=== PATIENT | female | born 1995 | race Caucasian/White ===

== ENCOUNTER 2022-06-20 10:52 | Outpatient (CLI) | payer BC, SELFPAY ==
[2022-06-20 17:17] LABS: Chloride* 102 mmol/L (96-114)
[2022-06-20 17:18] LABS: Potassium* 4.4 mmol/L (3.6-5.1); Sodium* 136 mmol/L (135-149)
[2022-06-20 17:20] LABS: Carbon Dioxide* 24 mmol/L (20-32); Cholesterol* 155 mg/dL (90-199); Creatinine* 0.6 mg/dL (0.5-1.5); Estimated Glomerular Filt Rate 126 ml/min
[2022-06-20 17:21] LABS: Blood Urea Nitrogen* 12 mg/dL (5-24); Calcium* 9.4 mg/dL (8.4-10.6); Glucose* 82 mg/dL (60-115); HDL Cholesterol* 69 mg/dL (>=50); LDL Cholesterol Calculated 66 mg/dL (<100); Triglycerides* 100 mg/dL (40-149)
== END 2022-06-20 10:53 | disposition home or self-care (01) ==
PROVIDERS: PCP Nurse Practitioner Family; Visit Provider Nurse Practitioner Family
DX: Z00.00 Encounter for general adult medical examination without abnormal findings (principal); Z13.6 Encounter for screening for cardiovascular disorders; Z13.29 Encounter for screening for other suspected endocrine disorder
CPT/HCPCS: 80048; 80061; 84443

== ENCOUNTER 2022-12-03 12:52 | Outpatient (CLI) | payer BC, SELFPAY ==
--- NOTE | 2022-12-03 13:00 | CRLHL7_ITS ---
For Patients: As a result of the Century Cures Act, medical imaging exams and procedure reports are released immediately into your electronic medical record. You may view this report before your referring provider. If you have questions, please contact your health care provider. INDICATION: First trimester scan, establish dates. COMPARISON: None. TECHNIQUE: Real-time espino-scale imaging of the pelvis was performed. FINDINGS: Sonographic imaging demonstrates a single living intrauterine gestation. The embryo demonstrates a regular cardiac rate measuring 171 beats per minute. The embryo`s crown-rump length measurement of 2.0 cm corresponds to a gestational age of 8 weeks 4 days with a sonographic due date of July 11, 2023. There is a normal-appearing yolk sac measuring 3.6 mm. There are no gross abnormalities noted within the embryo at this early state of development. The placenta has not yet developed. The gestational sac has a normal appearance. Minimal subchorionic hemorrhage inferior to the gestational sac measuring 4 x 9 x 3 mm. The amount of fluid within the sac appears appropriate for gestational age. The cervix is closed. The myometrium appears normal. The ovaries are of normal size. The right ovary measures 3.0 x 1.7 x 1.9 cm. The left ovary measures 3.8 x 2.4 x 2.9 cm. Corpus luteum cyst of on the left. There are no suspicious fluid collections noted in the cul-de-sac. IMPRESSION: Normal first trimester OB ultrasound exam. Gestational age calculated at 8 weeks 4 days with a sonographic due date of July 11, 2023. Dictated by Pavan Turner MD @ 12/03/2022 2:01:00 PM (Electronically Signed)
== END 2022-12-03 12:53 | disposition home or self-care (01) ==
LOC: US 12:52
PROVIDERS: PCP Nurse Practitioner Family; Visit Provider Registered Nurse
DX: Z34.91 Encounter for supervision of normal pregnancy, unspecified, first trimester (principal); Z3A.08 8 weeks gestation of pregnancy
CPT/HCPCS: 76817; 86592; 86703; 86762; 86787; 86803; 86850; 86900; 86901; 87086; 87340; 87491; 87591

== ENCOUNTER 2023-02-18 13:53 | Outpatient (CLI) | payer BC, SELFPAY ==
--- NOTE | 2023-02-18 14:00 | CRLHL7_ITS ---
For Patients: As a result of the Century Cures Act, medical imaging exams and procedure reports are released immediately into your electronic medical record. You may view this report before your referring provider. If you have questions, please contact your health care provider. INDICATION: Evaluate anatomy. COMPARISON: 12/03/2022 TECHNIQUE: Real time espino scale imaging of the fetus was performed as well as color Doppler analysis of the umbilical vessels. FINDINGS: Sonographic imaging demonstrates a single living intrauterine gestation. Fetus demonstrates a regular cardiac rate of 145 beats per minute. Fetus has a variable position. The placenta lies posterior without evidence of placenta previa. The edge of the placenta is located 3.4 cm from the internal cervical os. Amniotic fluid volume appears normal. Single deepest vertical pocket: 3.6 cm. The cervix is closed and measures 3.9 cm in length. The composite ultrasound gestational age is calculated at 19 weeks 2 days with an estimated sonographic due date of 07/13/2023. The estimated weight is 299 grams which lies at the 36th %. The following biometric measurements were obtained: Biparietal diameter: 4.2 cm/18 weeks 5 days 14th% Head circumference: 16.3 cm/19 weeks 0 days 15th% Abdominal circumference: 13.9 cm/19 weeks 2 days 31st% Femur length: 3.2 cm/20 weeks 0 days 54th% The HC/AC ratio measures: 1.17 range (1.09-1.26) On anatomic survey, there is a normal appearance of the cerebral ventricles, cavum septi pellucidi, cisterna magna and cerebellum. The nose, lips, and facial profile appear normal. The cervical, thoracic and lumbar spine are well visualized and appear normal. There is a normal four-chamber heart view and the left and right ventricular outflow tracts appear normal. The diaphragm and stomach appear normal. The kidneys and bladder also appear normal. There is a normal three-vessel cord and there is an eccentric cord insertion site. The four extremities appear normal. IMPRESSION: Normal OB ultrasound exam with concordance of clinical and sonographic dating. No intrinsic abnormalities noted on anatomic survey. Dictated by Servando Pyle MD @ 02/20/2023 6:46:00 AM (Electronically Signed)
== END 2023-02-18 13:54 | disposition home or self-care (01) ==
LOC: US 13:54
PROVIDERS: PCP Nurse Practitioner Family; Visit Provider Physician Assistant
DX: Z34.92 Encounter for supervision of normal pregnancy, unspecified, second trimester (principal); Z3A.19 19 weeks gestation of pregnancy
CPT/HCPCS: 76805

== ENCOUNTER 2023-04-21 09:28 | Outpatient (CLI) | payer BC, SELFPAY | END 2023-04-21 09:29 | disposition home or self-care (01) | LOC: NFLDREF 04-23 06:27 | PROVIDERS: PCP Nurse Practitioner Family; Referring Provider Nurse Practitioner Family; Visit Provider Obstetrics & Gynecology | DX: Z34.93 Encounter for supervision of normal pregnancy, unspecified, third trimester (principal); Z3A.29 29 weeks gestation of pregnancy | CPT/HCPCS: 86592 ==

== ENCOUNTER 2023-06-12 11:14 | Outpatient (CLI) | payer BC, SELFPAY ==
[2023-06-13 09:39] LABS: Strep B DNA Probe NEGATIVE (Negative)
[2023-06-13 09:41] LABS: Strep B Pen/Amox Allergy No
== END 2023-06-12 11:15 | disposition home or self-care (01) ==
LOC: NFLDREF 11:15
PROVIDERS: PCP Nurse Practitioner Family; Visit Provider Physician Assistant
DX: Z34.93 Encounter for supervision of normal pregnancy, unspecified, third trimester (principal); Z3A.36 36 weeks gestation of pregnancy
CPT/HCPCS: 87081; 87653

== ENCOUNTER 2023-06-18 11:07 | Outpatient (CLI) | payer BC, SELFPAY ==
--- NOTE | 2023-06-18 11:30 | CRLHL7_ITS ---
For Patients: As a result of the Century Cures Act, medical imaging exams and procedure reports are released immediately into your electronic medical record. You may view this report before your referring provider. If you have questions, please contact your health care provider. INDICATION: Size less than dates COMPARISON: 02/18/2023 TECHNIQUE: Real time espino scale imaging of the fetus was performed. FINDINGS: Sonographic imaging demonstrates a single living intrauterine gestation. Fetus demonstrates a regular cardiac rate of 134 beats per minute. Fetus has a vertex position. The placenta lies right fundal. Amniotic fluid volume appears normal and there is a single deepest vertical pocket: 4.9 cm. The estimated weight is 2933gm which lies at the 43rd %. On the prior OB ultrasound exam dated 02/18/2023 the estimated weight was at the 36th%. BPD 18th percentile. HC 14th percentile. AC 76th percentile. FL 10th percentile. The HC/AC ratio measures 0.96 range (0.93-1.08). IMPRESSION: Sonographic gestational age 36 weeks 0 days and the sonographic due date 07/16/2023. Sonographic age 6 days behind the clinical age. Estimated weight 43rd percentile. Abdominal circumference 76th percentile. Dictated by Servando Pyle MD @ 06/18/2023 12:33:19 PM (Electronically Signed)
== END 2023-06-18 11:08 | disposition home or self-care (01) ==
LOC: US 11:08
PROVIDERS: PCP Nurse Practitioner Family; Visit Provider Obstetrics & Gynecology
DX: O36.5930 Maternal care for other known or suspected poor fetal growth, third trimester, not applicable or unspecified (principal); Z3A.36 36 weeks gestation of pregnancy
CPT/HCPCS: 76816

== ENCOUNTER 2023-07-10 06:58 | Inpatient (IN) | payer BC, SELFPAY ==
[2023-07-10] VITALS (31 sets, daily range): BP systolic 84–119; BP diastolic 44–71; PULSE 58–114; RESP 16–17; TEMP 36.6–36.9; O2SAT 97–100; BMI 27.3
--- NOTE | 2023-07-10 07:54 | W.PM.LDBA ---
Subjective History of Present Illness Time Seen by Provider: 07:54 Date Seen: 07/10/23 Narrative: Patient is being admitted to Labor and Delivery for elective IOL. She is a 27 year old at 40 0/7 weeks gestation. Her full history and physical was dictated by Dr. LOVE on 06/18/23. Please see this for details. Specific Issues/Plans 001 : Remi. Daughter: Maryjane Foster MaterniT 21- girl! Adenike (Live - ee) 1. Prolonged recovery after second degree vaginal laceration (no perineal laceration) and left labial laceration with first baby. Flu vaccine 12/03/22 COVID: Completed, not boosted. Recommended Tdap:05/05/23 OB - Problem Based A/P Additional Plan (1) Elective induction of labor planned: Status: Acute Plan 1. IOL to start with IV Oxytocin and AROM when able. 2. GBS negative no antibiotic prophylaxis indicated. 3. Pain management as per patient request. 4. Expect a vaginal delivery. OB Exam Physical Exam Vital signs: Pulse BP Pulse Ox 97 114/67 97 07/10/23 07:17 07/10/23 07:17 07/10/23 07:17 Detailed Labor and Delivery Exam Patient Gravid: Yes Dilation (cm): 4 Effacement (%): 80 Cervix position: mid Consistency: soft Contraction Frequency: Sporadic Tachysystole: No Contraction intensity: Mild Fetus (Single) Station: -1 Amniotic Membrane Status: intact Heart Rate Baseline: 135 Monitor Accelerations: Present Monitor Decelerations: Variable Correction Variability: Moderate (6-25)
[2023-07-10] MEDS: LACTATED RINGERS 1000 ML 1,000 ML 125 ML IV (08:33)
[2023-07-10] MEDS: OXYTOCIN 30 unit/500 ML in NS 30 UNIT/500 ML BAG IVPB (08:35)
[2023-07-10] MEDS: ROPIVACAINE 0.2% 100 ml 100 ML 12 MG EPIDURAL (11:52)
[2023-07-10] MEDS: PHENYLEPHRINE 100 MCG/ML SYRINGE IVP (11:56)
[2023-07-10] MEDS: LACTATED RINGERS 1000 ML 1,000 ML 999 ML IV (11:57)
--- NOTE | 2023-07-10 13:08 | P.ANBPRC_ITS ---
[facility] Medical History Normal spontaneous vaginal delivery ?O80 - Encounter for full-term uncomplicated delivery (ICD-10) History of fracture of clavicle ?Z87.81 - Personal history of (healed) traumatic fracture (ICD-10) Social History What is your current living situation?: I presently have a place to live Problems where you live: no known problems In the past 12 months, utilities in danger of being shut off: no In the past 12 mos, have been you worried that your food would run out before you had money to buy more?: never true In the past 12 mos, the food you bought just didn't last and you didn't have money to buy more?: never true Smoking Status: Never smoker How often does anyone, including family, friends and others, physically hurt you : never How often does anyone, including family, friends and others, insult or talk down to you: never How often does anyone, including family, friends and others, threaten you with harm: never How often does anyone, including family, friends and others, scream or curse at you: never Little interest or pleasure in doing things: not at all Feeling down, depressed, or hopeless: not at all Meds Home Medications and Allergies Home Medications Medication Instructions Recorded Confirmed Type prenat.vits,whit,zav-uzwx-vbuov 1 tab PO QDAY 12/03/22 07/10/23 History Allergies Allergy/AdvReac Type Severity Reaction Status Date / Time Penicillins Allergy Mild Rash Verified 07/10/23 07:49 Results Vital Signs Vital Signs: Last Vital Signs Temp 97.8 F 07/10/23 11:15 Pulse 76 07/10/23 12:57 Resp 17 07/10/23 11:15 BP 110/60 07/10/23 12:57 Pulse Ox 99 07/10/23 11:49 Weight: 69.853 kg Height: 160.02 cm Anesthesia Procedures Epidural Insertion Patient Location: OB Start Time: 11:30 Stop Time: 12:15 Start Date: 07/10/23 Stop Date: 07/10/23 Reason for Block: procedure for pain Patient Position: sitting Performed By: Jodee Patel Preanesthetic Checklist: IV checked, risks and benefits discussed, monitors and equipment checked, timeout performed and anesthesia consent Prep: chlorhexidine gluconate Monitoring: blood pressure monitoring, continuous pulse oximetry and heart rate Approach: midline Vertebral Space: lumbar (1-5) Epidural Technique: KATRIN saline Needle Type: Tuohy needle Injection Technique: continuous catheter Needle gauge: 17 Needle Length (cm): 10 cm Needle Insertion Depth (cm): 4 Catheter Gauge: 19 Catheter Type: multi-orifice Catheter at skin depth (cm): 8 Test Dose Result: negative and lidocaine 1.5% with epinephrine 1 to 200,000
--- NOTE | 2023-07-10 13:17 | W.PM.OBVAGDE ---
OB Procedure Vag Delivery Mother Details Mother Details: The patient is a 27 year-old, 2, Para 1, admitted on 07/10/23 at 40 0/7 Days gestation. Additional Details Amniotic Membrane Status: intact Heart: heart tones during second stage were [] Delivery Details Delivery Details: Delivered over [intact perineum] via [spontaneous] vaginal delivery. Infant was placed on maternal abdomen.? Cord was clamped and cut after a 30-60 second delay. Nose and mouth were bulb suctioned.? Infant weight pending. Event Summary Status: Mother and infant were stable after delivery.
[2023-07-10] MEDS: IBUPROFEN 600 MG TABLET PO (20:18)
[2023-07-11 00:06] VITALS: BP 110/65; PULSE 75; RESP 16; TEMP 36.9; O2SAT 97
[2023-07-11 03:58] VITALS: BP 118/71; RESP 16; TEMP 36.7; O2SAT 99
[2023-07-11] MEDS: IBUPROFEN 600 MG TABLET PO ×2 (04:57→10:31)
[2023-07-11 07:00] LABS: Hemoglobin* 11.3 gm/dL (12.0-16.0)
[2023-07-11 08:00] VITALS: BP 110/72; PULSE 62; RESP 16; TEMP 36.6
--- NOTE | 2023-07-11 08:07 | P.DS_ITS ---
DS: Providers Provider Time Seen by Provider: 08:08 Date Seen: 07/11/23 Date of admission: 07/10/23 06:58 Primary care physician: Sherley Leon CNP Admitting Clinician: Suzan Baxter MD Attending Physician on discharge: Suzan Baxter MD Date of Discharge: 07/11/23 DS: Diagnosis Discharge Diagnosis (1) NVD (normal vaginal delivery): Status: Acute (2) Lactating mother: Status: Acute Exam Narrative: Exam Narrative: VSS, afebrile GENERAL APPEARANCE: ?normal affect, alert, no distress MOOD: ?appropriate HEENT: normocephalic, neck supple, full ROM CHEST: ?Symmetrical chest wall movement. ?Normal respiratory effort. ?Clear to auscultation HEART: ?regular rate and rhythm ABDOMEN: ?soft, non-tender. Uterine fundus is firm, at Umbilicus, Midline and is appropriate for the stage of recovery. ?Bowel sounds present. PERINEUM: ?mild edema of the perineum, there is a smalllaceration that is healing well. EXTREMITIES: ?normal and no edema Const: Vital Signs, click to edit/add: Vital Signs - 24 hr 07/10/23 08:37 07/10/23 10:03 07/10/23 11:15 Temperature 98.5 F 97.8 F Pulse Rate 66 Pulse Rate [Pulse Oximeter] Respiratory Rate 16 17 Blood Pressure 108/63 Blood Pressure [Le ft Radial Artery] Pulse Oximetry Oxygen Delivery Tn thod 07/10/23 11:34 07/10/23 11:35 07/10/23 11:39 Temperature Pulse Rate 65 Pulse Rate [Pulse Oximeter] Respiratory Rate Blood Pressure 108/65 Blood Pressure [Le ft Radial Artery] Pulse Oximetry 99 100 Oxygen Delivery Tn thod 07/10/23 11:44 07/10/23 11:46 07/10/23 11:48 Temperature Pulse Rate 58 L 64 104 H Pulse Rate [Pulse Oximeter] Respiratory Rate Blood Pressure 91/49 L 84/44 L 90/53 L Blood Pressure [Le ft Radial Artery] Pulse Oximetry 100 Oxygen Delivery Tn thod 07/10/23 11:49 07/10/23 11:50 07/10/23 11:52 Temperature Pulse Rate 75 65 Pulse Rate [Pulse Oximeter] Respiratory Rate Blood Pressure 108/61 102/59 L Blood Pressure [Le ft Radial Artery] [facility]ulse [facility]ximetry [facility] 11[facility]54 07/10/23 11:56 07/10/23 11:58 Temperature Pulse Rate 64 70 69 Pulse Rate [Pulse Oximeter] Respiratory Rate Blood Pressure 104/59 L 100/59 L 100/57 L Blood Pressure [Le ft Radial Artery] Pulse [facility]ximetry [facility] 12:04 07/10/23 12:09 07/10/23 12:15 Temperature Pulse Rate 75 70 70 Pulse Rate [Pulse Oximeter] Respiratory Rate Blood Pressure 100/52 L 105/56 L 105/55 L Blood Pressure [Le ft Radial Artery] Pulse [facility]ximetry [facility] 12:20 07/10/23 12:57 07/10/23 13:13 Temperature Pulse Rate 75 76 72 Pulse Rate [Pulse Oximeter] Respiratory Rate Blood Pressure 106/67 110/60 112/58 L Blood Pressure [Le ft Radial Artery] Pulse Oximetry [facility] 13:26 07/10/23 13:41 07/10/23 13:56 Temperature Pulse Rate 63 69 65 Pulse Rate [Pulse Oximeter] Respiratory Rate Blood Pressure 119/68 119/71 112/64 Blood Pressure [Le ft Radial Artery] Pulse Oximetry [facility] 14:12 07/10/23 14:26 07/10/23 14:41 Temperature Pulse Rate 81 64 69 Pulse Rate [Pulse Oximeter] Respiratory Rate Blood Pressure 110/63 111/67 116/68 Blood Pressure [Le ft Radial Artery] Pulse Oximetry [facility] 14:56 07/10/23 15:45 07/10/23 20:03 Temperature 98.0 F 98.2 F Pulse Rate 80 Pulse Rate [Pulse Oximeter] 61 77 Respiratory Rate 16 16 Blood Pressure 111/67 Blood Pressure [Le ft Radial Artery] 109/68 115/66 Pulse Oximetry 98 98 Oxygen Delivery [facility] Room Air Room Air 07/11/23 00:06 07/11/23 03:58 07/11/23 08:00 Temperature 98.5 F 98.1 F 97.8 F Pulse Rate Pulse Rate [Pulse Oximeter] 75 62 Respiratory Rate 16 16 16 Blood Pressure Blood Pressure [Le ft Radial Artery] 110/65 118/71 110/72 Pulse Oximetry 97 99 Oxygen Delivery Me thod Room Air Room Air Room Air Documenting provider has reviewed patient's vital signs: yes OB - DS: Summary Hospital Course Hospital Course: Precious is a 27 y.o. G 2 P 2 who was admitted to L & D for IOL. ?She had an uncomplicated NVD The patient feels well. ?The pain is well controlled with current medications. ?She has no new complaints. ?She is breast feeding and reports things are going well.? the patient has done well.? Vitals have been stable.? She has remained afebrile.? Has a good appetite, is tolerating a general diet. ?She is voiding without difficulty.? She is passing gas and has had a bowel movement.? She is ambulating and denies any dizziness.? Has Small amount of rubra lochia. She is undecided about prevention. Problems: none plan: Discharge home with baby. Follow up in 2 weeks and 6 weeks. , may follow up with if needed Gender: Female Discharge Plan: Home Status at Discharge Functional status at discharge: independent ambulation Overall status at discharge: patient is progressing back to baseline Time Spent with Patient Time attestation: Total time spent providing and/or coordinating discharge services: Time spent: Less than 30 minutes Discharge Plan Discharge Disposition: Home, Self-Care Date of Admission: 07/10/23 06:58 Attending Provider on Discharge: Cayla Gamez Primary Care Provider: Sherley Leon Condition: Stable Anticipated Discharge Date/Time: 07/11/23 15:00 Discharge Medications: New docusate sodium 100 mg Capsule 100 mg PO BID PRNQty: 100 0RF Rx Instructions: Take 1 cap 1-2 times a day as needed for constipation ibuprofen 600 mg Tablet 600 mg PO Q6H PRNQty: 60 0RF Continued prenat.vits,whit,[id number] Tablet 1 tab PO QDAY Discharge Orders: Discharge Order (Routine); Ordered 07/11/23 Ordered By: Cayla Gamez Patient Education: OB Over the Counter Medication Information, OB Vaginal/Breast Feeding Activity Level: Activity as Tolerated Activity Detail: Follow up in 2 weeks and 6 weeks Discharge Diet: Regular Follow Up Appointments: Sherley Leon, OPERATIONS VICE PRESIDENT [Primary Care Provider] - Forms: MyHealth Info Instructions
[2023-07-11] MEDS: DOCUSATE SODIUM 100 MG CAPSULE PO (10:31)
--- NOTE | 2023-07-11 12:53 | W.PM.OBVAGDE ---
OB Procedure Vag Delivery Mother Details Mother Details: The patient is a 27 year-old, 2, Para 2, admitted on 07/10/23 at 40.0 Days gestation for elective IOL. : 2 Para: 2 Weeks Gestation: 40 Admission Date: 07/10/23 Additional Details Amniotic Membrane Status: AROM Amniotic Membrane Rupture Date: 07/10/23 Amniotic Membrane Rupture Time: 11:00 Amniotic Membrane Fluid Description: Clear Analgesia/Anesthesia Type: Epidural Waterbirth: No Pitcoin: Yes Intrapartal Events: Labor Induction Induction Method: per pitocin protocol and AROM Labor Onset: 11:00 Complete: 12:23 Pushin:40 Heart: heart tones during second stage were category 2, deceleration noted after pushing, acceleration noted with scalp stimulation. Delivery Details Delivery Date: 07/10/23 Delivery Time: 12:51 Route of delivery: Infant Gender: Female Infant Viability: Alive; Heart Rate Present Position at Delivery: OA Delivery Details: Delivered over intact perineum via spontaneous vaginal delivery. Infant was placed on maternal abdomen.? Cord was clamped and cut after a 30-60 second delay. Nose and mouth were bulb suctioned.? Infant weight pending. 1 Minute Interval Total Score: 8 5 Minute Interval Total Score: 9 Additional Details Shoulder Dystocia: No Placenta Delivery Time: 12:55 Placental Delivery Description: Spontaneous Delivery repair: Vicryl Procedure Done: Global Blood Loss: 100 Laceration: Vaginal - 1st Degree Episiotomy Description: None Blood Loss Measurement Type: QBL Bakri Used: No Sponge/Need Count Correct: Yes Cord Vessel Description: 3 Vessels Event Summary Status: Mother and infant were stable after delivery. Disposition: floor
[2023-07-11 13:35] VITALS: BP 112/71; PULSE 62; RESP 16; TEMP 36.6
== END 2023-07-11 14:15 | disposition home or self-care (01) | DRG 560 ==
PROVIDERS: Admitting Provider Obstetrics & Gynecology; PCP Nurse Practitioner Family; Visit Provider Obstetrics & Gynecology
DX: O70.0 First degree perineal laceration during delivery (principal); Z3A.40 40 weeks gestation of pregnancy; Z37.0 Single live birth
CPT/HCPCS: 01967; 36415; 85018; A9270; J2371; J2795; J7120; S0020

== ENCOUNTER 2024-01-08 13:00 | Outpatient (RCR) | payer BC, SELFPAY | END 2024-03-31 10:20 | disposition home or self-care (01) | PROVIDERS: PCP Nurse Practitioner Family; Visit Provider Advanced Practice Midwife | DX: N81.89 Other female genital prolapse (principal); Z51.89 Encounter for other specified aftercare | CPT/HCPCS: 97110; 97112; 97140; 97161; 97535 ==

== ENCOUNTER 2024-02-04 15:50 | Outpatient (CLI) | payer BC, SELFPAY ==
[2024-02-04 23:23] LABS: Chlamydia DNA Amplified* NOT DETECTED (No Detected); GC DNA Amplified* NOT DETECTED (No Detected)
== END 2024-02-04 15:51 | disposition home or self-care (01) ==
LOC: NFLDREF 15:51
PROVIDERS: PCP Nurse Practitioner Family; Visit Provider Registered Nurse
DX: Z01.419 Encounter for gynecological examination (general) (routine) without abnormal findings (principal); Z11.3 Encounter for screening for infections with a predominantly sexual mode of transmission
CPT/HCPCS: 87491; 87591

== ENCOUNTER 2024-04-14 09:10 | Outpatient (CLI) | payer BC, SELFPAY ==
--- NOTE | 2024-04-14 09:15 | CRLHL7_ITS ---
For Patients: As a result of the Century Cures Act, medical imaging exams and procedure reports are released immediately into your electronic medical record. You may view this report before your referring provider. If you have questions, please contact your health care provider. CLINICAL HISTORY: Excessive and frequent menstruation, pelvic pain TECHNIQUE: 2D espino scale ultrasound. In addition color Doppler and spectral Doppler analysis was performed of the pelvis using a transabdominal and transvaginal approach. FINDINGS: The myometrium has a normal uniform echotexture. The uterus measures 7.7 x 4.9 x 5.9 cm. The endometrial lining measures 13 mm in thickness. The right ovary measures 3.6 x 1.7 x 2.1 cm in size and the left ovary measures 3.5 x 2.3 x 2.5 cm. The ovaries demonstrate normal arterial and venous blood flow on color Doppler and spectral Doppler analysis. Mild physiologic free fluid noted. IMPRESSION: No uterine fibroid. No excess pelvic free fluid or adnexal mass. No torsion. Dictated by Servando Pyle MD @ 04/15/2024 10:35:43 AM (Electronically Signed)
== END 2024-04-14 09:11 | disposition home or self-care (01) ==
LOC: US 09:10
PROVIDERS: PCP Nurse Practitioner Family; Visit Provider Registered Nurse
DX: N92.1 Excessive and frequent menstruation with irregular cycle (principal); R10.2 Pelvic and perineal pain
CPT/HCPCS: 76830; 76856; 93976

== ENCOUNTER 2024-06-01 17:46 | Outpatient (CLI) | payer BC, SELFPAY ==
[2024-06-01 21:01] LABS: Chlamydia DNA Amplified* NOT DETECTED (No Detected); GC DNA Amplified* NOT DETECTED (No Detected)
== END 2024-06-01 17:47 | disposition home or self-care (01) ==
PROVIDERS: PCP Nurse Practitioner Family; Visit Provider Registered Nurse
DX: Z34.91 Encounter for supervision of normal pregnancy, unspecified, first trimester (principal); Z3A.08 8 weeks gestation of pregnancy
CPT/HCPCS: 76817; 86592; 86703; 86704; 86706; 86762; 86787; 86803; 86850; 86900; 86901; 87086; 87340; 87491; 87591

== ENCOUNTER 2024-08-19 12:52 | Outpatient (CLI) | payer BC, SELFPAY ==
--- NOTE | 2024-08-19 13:00 | CRLHL7_ITS ---
For Patients: As a result of the Century Cures Act, medical imaging exams and procedure reports are released immediately into your electronic medical record. You may view this report before your referring provider. If you have questions, please contact your health care provider. INDICATION: Evaluate anatomy. COMPARISON: [id number] TECHNIQUE: Real time espino scale imaging of the fetus was performed as well as color Doppler analysis of the umbilical vessels. FINDINGS: Sonographic imaging demonstrates a single living intrauterine gestation. Fetus demonstrates a regular cardiac rate of 142 beats per minute. Fetus has a variable position. The placenta lies anteriorly without evidence of placenta previa. Edge of the placenta located 12 cm from the internal cervical os. Amniotic fluid volume appears normal. Single deepest vertical pocket: 3.3 cm. The cervix is closed and measures 3.8 cm in length. The composite ultrasound gestational age is calculated at 21 weeks 0 days with an estimated sonographic due date of 12/30/2024. The estimated weight is 393 grams which lies at the 89th %. The following biometric measurements were obtained: Biparietal diameter: 4.5 cm/19 weeks 3 days 22nd% Head circumference: 18.4 cm/20 weeks 5 days 71st% Abdominal circumference: 17.0 cm/22 weeks 0 days 92nd% Femur length: 3.2 cm/20 weeks 1 day 41st% The HC/AC ratio measures: 1.08 range (1.06-1.25) On anatomic survey, there is a normal appearance of the cerebral ventricles, cavum septi pellucidi, cisterna magna and cerebellum. The nose, lips, and facial profile appear normal. The cervical, thoracic and lumbar spine are well visualized and appear normal. There is a normal four-chamber heart view and the left and right ventricular outflow tracts appear normal. The diaphragm and stomach appear normal. The kidneys and bladder also appear normal. There is a normal three-vessel cord and cord insertion site. The four extremities appear normal. IMPRESSION: Sonographic gestational age 21 weeks 0 days and sonographic due date of 12/30/2024. Sonographic age is 6 days ahead of the clinical age. Estimated weight 89th percentile. Abdominal circumference 92nd percentile. Normal anatomy. Dictated by Servando Pyle MD @ 08/20/2024 10:15:50 AM (Electronically Signed)
== END 2024-08-19 12:53 | disposition home or self-care (01) ==
LOC: US 12:52
PROVIDERS: PCP Nurse Practitioner Family; Visit Provider Obstetrics & Gynecology
DX: Z34.92 Encounter for supervision of normal pregnancy, unspecified, second trimester (principal); Z3A.21 21 weeks gestation of pregnancy
CPT/HCPCS: 76805

== ENCOUNTER 2024-10-14 09:23 | Outpatient (CLI) | payer BC, SELFPAY | END 2024-10-14 09:24 | disposition home or self-care (01) | LOC: NFLDREF 10-18 23:15 | PROVIDERS: PCP Nurse Practitioner Family; Referring Provider Nurse Practitioner Family; Visit Provider Obstetrics & Gynecology | DX: Z34.83 Encounter for supervision of other normal pregnancy, third trimester (principal) | CPT/HCPCS: 86592 ==

== ENCOUNTER 2024-12-09 14:07 | Outpatient (CLI) | payer BC, SELFPAY ==
[2024-12-10 14:11] LABS: Strep B DNA Probe POSITIVE (Negative)
[2024-12-10 14:24] LABS: Strep B Susceptibility Needed? Yes
== END 2024-12-09 14:08 | disposition home or self-care (01) ==
LOC: NFLDREF 14:07
PROVIDERS: PCP Nurse Practitioner Family; Visit Provider Midwife
DX: Z34.93 Encounter for supervision of normal pregnancy, unspecified, third trimester (principal); Z3A.36 36 weeks gestation of pregnancy
CPT/HCPCS: 87081; 87653

== ENCOUNTER 2025-01-01 04:37 | Inpatient (IN) | payer BC, SELFPAY ==
[2025-01-01] VITALS (16 sets, daily range): BP systolic 94–115; BP diastolic 53–74; PULSE 64–86; RESP 16–20; TEMP 36.4–37.1; O2SAT 95–97; BMI 26.9
--- NOTE | 2025-01-01 05:02 | P.LDBA_ITS ---
Subjective History of Present Illness Narrative: Patient is being admitted to Labor and Delivery for active labor. She is a 29 year old at 39w3d gestation. Her full history and physical was dictated by Marita Yanez CNM on 12/15/2024. Please see this for details. has been uncomplicated. Specific Issues/Plans Baby girl: undecided G 3 P 2001 # Negative Hep B surface antibody. # Closely spaced pregnancies. Last delivery 07-10-23. # GBS positive, recommend antibiotics in labor. PCN allergy (rash as a child). Document Control Associate referral placed at 37 wks but aware that may not be able to get testing completed in time. Sensitivities: susceptible to all. Not able to do penicillin testing in , see referral activity and discuss with patient about testing . She will plan for PP Covid: Completed, not up-to-date with boosters. Recommended. Declined 08/19/24 Flu: Declined 08/19/24 Ultrasounds: 08/19/24: Anterior placenta without previa, SDP 3.3, normal visualized anatomy, EFW 89%, AC 92.1%. RSV: declined OB - Problem Based A/P Additional Plan (1) : Status: Acute Plan ASSESSMENT:?? age 29 at 39 3/7 weeks gestation?? complicated by:??none Labor type: Spontaneous, Early Active stage labor?? Category 1 FHR pattern.??? Labor complicated by: GBS positive, declining treatment at this time? PLAN:?? 1. Routine intrapartum cares as ordered. Continue with expectant management?? 2. Monitoring per policy, intermittent?? 3. Planning unmedicated . Desires water . Consent signed. Hep C negative. Candidate for analgesia of choice.??? 4. Patient encouraged to reposition and ambulate to promote physiologic labor and .?? 5. GBS prophylaxis initiated for GBS positive status. Pt will notify us if she decides to treat with clindamycin. Reviewed risks of not treating, possible scenarios that may increase risk, serious nature of GBS infection of , signs and symptoms to report with low threshold to do so, extended stay/monitoring, etc. 6. Anticipate ? OB Exam Physical Exam Vital signs: Temp Pulse Resp BP 97.5 F L 83 16 115/74 01/01/25 04:09 01/01/25 04:09 01/01/25 04:09 01/01/25 04:09 Narrative: Vitals Reviewed Constitutional:? Alert and oriented x3 HEENT:? Normocephalic, atraumatic Neck:? Supple Lungs:? Clear to auscultation bilaterally Heart:? Regular rate and rhythm, no murmur, rub or gallop Abdomen:? Soft, nontender, and gravid. contractions moderate to palpate. Vertex by Dl's, confirmed with cervical exam by nursing. Extremities:? No edema or erythema Cervix: 6 cm/90%/0 station/vertex per nursing NST: 125 bpm/moderate variability/accelerations present/decelerations absent/contractions q 5 min x 90 sec
--- NOTE | 2025-01-01 08:09 | PM.OBPNL ---
Subjective Date Seen: 01/01/25 Narrative: Precious has continued to labor and contractions have increased in frequency and are currently approximately every 3 minutes. She states they are more intense with upright positions but denies pressure, bleeding or leaking fluids. We discussed options for continuing labor if it is slowing or stalling out including AROM and Pitocin. We discussed advantages and disadvantages to AROM given that she is currently declining GBS prophylaxis treatment. She is requesting a SVE and was found to be 8cm/90%/0. Will continue with expectant management. She asked about timing for getting into the tub for pain relief and we discussed options. Objective Vital Signs: Last Vital Signs Temp 97.9 F 01/01/25 07:24 Pulse 72 01/01/25 07:23 Resp 16 01/01/25 04:09 BP 94/53 L 01/01/25 07:23 Pelvic Exam Dilation (cm): 8 Effacement (%): 90 Station: 0 Contractions Monitor mode: Palpation Contraction Frequency: Q3 min Contraction pattern: Regular Contraction intensity: Strong/Firm Assessment Assessment: active labor Station: 0 Heart Rate Baseline: 135 (per auscultation, no decreases heard ) Plan Plan: ASSESSMENT:?? at 39 3/7 weeks gestation?? complicated by:??none Labor type: Spontaneous, Active labor??? Labor complicated by: GBS positive, declining treatment at this time? PLAN:?? 1. Routine intrapartum cares as ordered. Continue with expectant management?? 2. Monitoring per policy, intermittent?? 3. Planning unmedicated . Desires water . Consent signed. Hep C negative. Candidate for analgesia of choice.??? 4. Patient encouraged to reposition and ambulate to promote physiologic labor and .?? 5. GBS prophylaxis discussed for GBS positive status. Pt declining at this time. Will notify us if she decides to treat with clindamycin. 6. Anticipate ?
[2025-01-01] MEDS: OXYTOCIN 10 UNIT/ML INJ IM (08:45)
--- NOTE | 2025-01-01 09:00 | W.PM.OBVAGDE ---
OB Procedure Vag Delivery Mother Details Mother Details: The patient is a 29 year-old, 3, Para 2, admitted on 01/01/25 at 39.3 Days gestation. : 3 Para: 3 Weeks Gestation: 39.3 Admission Date: 01/01/25 Additional Details Amniotic Membrane Status: AROM Amniotic Membrane Rupture Date: 01/01/25 Amniotic Membrane Rupture Time: 08:20 Amniotic Membrane Fluid Description: Clear Analgesia/Anesthesia Type: None Waterbirth: Yes Pitcoin: Yes ([facility] only) Intrapartal Events: Labor Augmentation Delivery augmentation: rupture of membranes Labor Onset: 04:00 Complete: 08:20 Pushin:20 Heart: heart tones during second stage were heard by doppler in the 130's without decreases heard. Delivery Details Delivery Date: 01/01/25 Delivery Time: 08:31 Route of delivery: Infant Gender: Female Viability: Alive; Heart Rate Present Position at Delivery: OA Delivery Details: Patient was admitted for active labor and progressed with AROM augmentation after complete and feeling intermittent urge to push. AROM at 0820 with clear fluid. Patient was complete at 0820 and pushing at 0820. of a viable female at 0831 in recumbent in the tub. Vertex delivered OA. No nuchal cord or shoulder. Body delivered easily and without incident. passed to mothers abdomen with a vigorous cry. Cord was clamped and cut at > 5 minutes. APGARS were 8 at one minute and 9 at five minutes respectively. Mouth was bulb suctioned. She was assisted to the bed where the placenta was delivered spontaneously intact with a 3 vessel cord at 0846. Fundus firm. Intact perineum identified and no repair was needed. QBL 50 mL in the drape and [address] to the bed from the tub. Mother and baby stable; mother plans to breastfeed. Infant weight 8lb 4oz.? 1 Minute Interval Total Score: 8 5 Minute Interval Total Score: 9 Additional Details Shoulder Dystocia: No Placenta Delivery Time: 08:46 Placental Delivery Description: Spontaneous Procedure Done: Global Blood Loss: 100 (50 QBL and 50 EBL) Laceration: None Episiotomy Description: None Blood Loss Measurement Type: QBL Bakri Used: No Sponge/Need Count Correct: Yes Cord Vessel Description: 3 Vessels Event Summary Status: Mother and infant were stable after delivery. Disposition: floor
[2025-01-01] MEDS: IBUPROFEN 600 MG TABLET PO ×3 (09:31→21:59)
[2025-01-01] MEDS: ACETAMINOPHEN 500 MG TABLET 1000 MG PO (13:03)
[2025-01-02 03:58] VITALS: BP 108/68; PULSE 80; RESP 20; O2SAT 96
[2025-01-02] MEDS: IBUPROFEN 600 MG TABLET PO ×2 (08:38→16:19)
[2025-01-02] MEDS: DOCUSATE SODIUM 100 MG CAPSULE PO (08:38)
[2025-01-02 08:51] VITALS: BP 103/66; PULSE 75; RESP 16; TEMP 36.4; O2SAT 96
--- NOTE | 2025-01-02 11:06 | PM.OBDSVD1 ---
DS: Providers Provider Date Seen: 01/02/25 Date of admission: 01/01/25 04:37 Primary care physician: Sherley Leon CNP Admitting Clinician: Keri aSm CNM Attending Physician on discharge: Keri Sam CNM Date of Discharge: 01/02/25 DS: Diagnosis Discharge Diagnosis (1) care following vaginal delivery: Status: Acute (2) Lactating mother: Status: Acute Exam Narrative: Exam Narrative: GENERAL APPEARANCE:? normal affect, alert, no distress? MOOD:? appropriate? CHEST:? clear to auscultation and percussion? HEART:? regular rate and rhythm? ABDOMEN:? soft, non-tender the uterine fundus is U/3 and is appropriate for the stage of recovery.? PERINEUM:? mild edema of the perineum, there is a intact perineum that is healing well.? EXTREMITIES:? normal and no edema? Const: Vital Signs, click to edit/add: Vital Signs - 24 hr 01/01/25 15:30 01/01/25 20:03 01/01/25 23:58 Temperature 98.6 F Pulse Rate [Pulse Oximeter] 64 77 75 Respiratory Rate 16 20 18 Blood Pressure [Ri ght Arm] 107/68 108/66 114/70 Pulse Oximetry 97 96 95 Oxygen Delivery Me thod Room Air Room Air Room Air 01/02/25 03:58 01/02/25 08:51 Temperature 97.6 F Pulse Rate [Pulse Oximeter] 80 75 Respiratory Rate 20 16 Blood Pressure [Ri ght Arm] 108/68 103/66 Pulse Oximetry 96 96 Oxygen Delivery Me thod Room Air Room Air Documenting provider has reviewed patient's vital signs: yes OB - DS: Summary Hospital Course Hospital Course: Precious is a 29 year old G 3 P 3 at 39.3 weeks gestation that was admitted to the Center on 01/01/25 for spontaneous labor. She had an uncomplicated vaginal delivery. She delivered a viable female infant. She is breast feeding and feels it is going very well so far. the patient has done well. Her pain is well controlled with current medications.? She has no new complaints.? Urinary output is adequate and she is voiding without difficulty.? Has a good appetite, is tolerating a general diet, is passing flatus, and has had a bowel movement.? Has scant amount of rubra lochia.? She is ambulating well. She is uncertain what she is planning for contraception but likely condoms or diaphragm until a final decision on future pregnancies is achieved. Peripartum Data delivery method: Vaginal Laceration description: None Episiotomy description: None complications: none [place] Gender: Female Discharge Plan: Home Status at Discharge Functional status at discharge: independent ambulation Overall status at discharge: patient is progressing back to baseline Time Spent with Patient Time attestation: Total time spent providing and/or coordinating discharge services: Discharge Plan Discharge Disposition: Home, Self-Care Date of Admission: 01/01/25 04:37 Attending Provider on Discharge: Marita Yanez Primary Care Provider: Sherley Leon Condition: Stable Anticipated Discharge Date/Time: 01/02/25 20:00 Discharge Medications: New docusate sodium 100 mg Capsule 100 mg PO DAILY Qty: 90 0RF Rx Instructions: Take 1-2 tablets daily as needed for constipation. ibuprofen 600 mg Tablet 600 mg PO Q6H PRNQty: 30 0RF Continued DHA 200 mg capsule PO Discharge Orders: Discharge Order (Routine); Ordered 01/02/25 Ordered By: Marita Yanez Patient Education: OB Vaginal/Breast Feeding Additional Instructions: Discharge instructions were reviewed with the patient including signs and symptoms of infection and home going medications.? Lifting Restrictions: 20 pounds for 6? weeks? ?? Do not drive while taking narcotic pain meds.? Off Work or School for 6 weeks.? ?? Symptoms to report to doctor:? -Bleeding that saturates more than one pad per hour? -Passing clots larger than the size of a golf ball? -Pain not relieved by prescribed medication? -Fever above 100.4 degrees Fahrenheit? -A foul vaginal odor? -Difficulty in emotions, mood and functions? -Thoughts of hurting yourself and/or ? -Painful, reddened area in your breast? -Any drainage, redness or tenderness in your IV/epidural site? -Severe headache that doesn't improve after taking medications? -Changes in vision, including temporary loss of vision, blurred vision, and/or light sensitivity? -Upper abdominal pain (usually under ribs on the right side)? -Decrease in urination or painful, frequent urinating? -Chest pain? -Shortness of breath? -Tenderness or pain with redness and/swelling in the calf(s) of your leg? ?? Follow Up in clinic in 2 and 6 weeks.? ?? consultation services are available to all mothers and babies for the first year after delivery.? To make an appointment, please call [phone].? Activity Level: Activity as Tolerated Discharge Diet: Regular Follow Up Appointments: Sherley Leon CNP [Primary Care Provider] - [facility] [Provider Group] Forms: MyHealth Info Instructions
[2025-01-02 16:07] VITALS: BP 105/65; PULSE 77; RESP 16; TEMP 36.7; O2SAT 96
[2025-01-02 20:11] VITALS: BP 121/77; PULSE 77; RESP 20
== END 2025-01-02 20:56 | disposition home or self-care (01) | DRG 560 ==
LOC: OB OUT 04:38 → OB 04:38
PROVIDERS: Admitting Provider Midwife; PCP Nurse Practitioner Family; Visit Provider Midwife
DX: O99.824 Streptococcus B carrier state complicating childbirth (principal); Z3A.39 39 weeks gestation of pregnancy; Z37.0 Single live birth
CPT/HCPCS: 86592; A9270; J2590